=== PATIENT | male | born 1970 | race Caucasian/White ===

== ENCOUNTER 2017-12-19 00:07 | Emergency (ER) | payer OTHER ==
[~2017-12-19] VITALS: Ht 177.8 cm; Wt 106.6 kg
[2017-12-19] MEDS ORDERED: SINGULAIR10 MG (00:23)
[2017-12-19] MEDS ORDERED: ALBUTEROL0.63 MG/3 (00:23)
[2017-12-19] MEDS ORDERED: KETO10TA2 PO (03:03)
[2017-12-19] MEDS ORDERED: ORPHENADRINE C100 MG PO (03:03)
== END 2017-12-19 03:05 | disposition home or self-care (01) ==
LOC: ER 00:07
DX: S33.5XXA Sprain of ligaments of lumbar spine, initial encounter (principal); S30.0XXA Contusion of lower back and pelvis, initial encounter; W18.09XA Striking against other object with subsequent fall, initial encounter; Y93.89 Activity, other specified; Y92.481 Parking lot as the place of occurrence of the external cause; Y99.8 Other external cause status

== ENCOUNTER 2018-11-17 13:54 | Emergency (ER) | payer OTHER ==
[~2018-11-17] VITALS: Ht 165.1 cm; Wt 93.0 kg
[~2018-11-17 13:54] MED LIST: ALBUTEROL0.63 MG/3; KETO10TA2 PO; ORPHENADRINE C100 MG PO; SINGULAIR10 MG
[2018-11-17] MEDS ORDERED: DICLOFENAC POTA50 MG PO (15:57)
== END 2018-11-17 16:58 | disposition home or self-care (01) ==
LOC: ER 13:54
DX: M25.561 Pain in right knee (principal)